=== PATIENT | female | born 1960 | race Caucasian/White ===

== ENCOUNTER → 2018-12-08 | Outpatient (CLI) | payer OTHER ==
[~2018-12-08] MED LIST: GASTROGRAFIN SOLUTION 30ML (Q9963) As Ordered ONE; ISOVUE-370 76% 125ML VIAL (Q9967 PER ML) As Ordered ONE
--- NOTE | 2018-12-08 17:13 | REP ---
Clinical: Left lower quadrant pain and change in bowel habits. Technique: Axial contrast enhanced images from the lung bases to the pubic symphysis using oral (per protocol) and 100 ml Isovue 370 intravenous contrast material with coronal and sagittal re-formations. Comparison: None. Findings: Lung bases are clear. Visualized heart and pericardium normal. Liver, spleen, pancreas, bilateral adrenal glands and kidneys are normal. The patient is status post cholecystectomy. The enteric system is without obstruction or acute inflammatory process. Normal terminal ileum and cecum identified in the right lower quadrant. Evidence for prior appendectomy noted. Pelvis demonstrates normal bladder and age-appropriate uterus/adnexa. Rectosigmoid colon appears normal. No pelvic fluid or ascites. No significant intraperitoneal or retroperitoneal adenopathy. No free air. Abdominal aorta and vasculature without aneurysm or dissection. Musculoskeletal structures without focal osseous abnormality. Impression: 1. Evidence of prior cholecystectomy and appendectomy. 2. No acute abdominopelvic pathology appreciated. 3. Specifically, no ascites, adenopathy, or focal inflammatory changes. Electronically Signed by Car Aceves MD 12/08/2018 05:05 P
== END ==
LOC: M RAD 14:48
PROVIDERS: ATTEND Physician Assistant Medical
DX: R19.4 Change in bowel habit (principal); R10.32 Left lower quadrant pain; R14.0 Abdominal distension (gaseous); Z90.49 Acquired absence of other specified parts of digestive tract
CPT/HCPCS: 74177; Q9963; Q9967

== ENCOUNTER 2019-01-05 07:59 | Day surgery (SDC) | payer OTHER ==
[~2019-01-05] VITALS: Ht 170.2 cm; Wt 81.2 kg
[2019-01-05] MEDS ORDERED: NS 1,000 ML IV ONE (08:15)
[2019-01-05] MEDS ORDERED: LIDOCAINE 2% INJ 100 MG/5 ML SDV (FOR ANES.) As Ordered ONE (09:25)
[2019-01-05] MEDS ORDERED: PROPOFOL 200 MG/20 ML VIAL As Ordered ONE (09:25)
--- NOTE | 2019-01-05 09:43 | ROOR ---
Patient Name: Indu Dallas Procedure Date: 01/05/2019 9:09 AM Date of : 1960 Age: 59 Room: [facility] Gender: Female Note Status: Finalized Procedure: Colonoscopy Indications: High risk colon cancer surveillance: Personal history of colonic polyps, Incidental - Change in bowel habits Providers: Andre WINN MD Referring MD: 1. No Referring Physician 1. No Referring Physician, Admin., Andre WINN MD Requesting Provider: Medicines: Monitored Anesthesia Care Complications: No immediate complications. Procedure: Pre-Anesthesia Assessment: - The heart rate, respiratory rate, oxygen saturations, blood pressure, adequacy of pulmonary ventilation, and response to care were monitored throughout the procedure. The Colonoscope was introduced through the anus and advanced to 10 cm into the ileum. The colonoscopy was performed without difficulty. The patient tolerated the procedure well. The quality of the bowel preparation was good. Findings: The perianal and digital rectal examinations were normal. Internal hemorrhoids were found during retroflexion. The hemorrhoids were moderate. No other significant abnormalities were identified in a careful examination of the remainder of the colon. The terminal ileum appeared normal. Impression: - Internal hemorrhoids. - The examined portion of the ileum was normal. - No specimens collected. Recommendation: - Repeat colonoscopy in 5 years for surveillance based on personal history of previous adenomatous polyps. - Lactose free diet for 10 days. Andre Winn MD Andre WINN MD 01/05/2019 9:42:32 AM Electronically signed by Andre WINN MD Number of Addenda: 0 Note Initiated On: 01/05/2019 9:09 AM Estimated Blood Loss: Estimated blood loss: none.
[2019-01-05 10:07] VITALS: BP 127/61
== END 2019-01-05 10:09 | disposition home or self-care (01) ==
LOC: M OPP 07:59
PROVIDERS: ATTEND Internal Medicine Gastroenterology
DX: K64.8 Other hemorrhoids (principal); R19.4 Change in bowel habit; Z86.010 Personal history of colon polyps

== ENCOUNTER → 2019-12-31 | Outpatient (CLI) | payer OTHER ==
[2019-12-31 12:59] LABS: FREE T4 1.11 NG/DL (0.76-1.46); THYROID STIMULATING HORMONE 1.77 uIU/ML (0.358-3.740)
== END ==
LOC: M LAB 11:58
PROVIDERS: ATTEND Internal Medicine Endocrinology, Diabetes & Metabolism
DX: E06.3 Autoimmune thyroiditis (principal)

== ENCOUNTER → 2020-07-03 | Outpatient (CLI) | payer OTHER ==
[2020-07-03 13:13] LABS: FREE T4 1.03 NG/DL (0.76-1.46); THYROID STIMULATING HORMONE 2.66 uIU/ML (0.358-3.740)
== END ==
LOC: M LAB 11:43
PROVIDERS: ATTEND Nurse Practitioner Family
DX: E06.3 Autoimmune thyroiditis (principal)